=== PATIENT | female | born 1980 | race Caucasian/White ===

== ENCOUNTER → 2022-09-13 | Emergency (ER) | payer OTHER ==
[~2022-09-13] VITALS: Ht 152.4 cm; Wt 81.6 kg
== END | disposition left against medical advice (07) ==
LOC: ER 19:11
DX: Z53.21 Procedure and treatment not carried out due to patient leaving prior to being seen by health care provider (principal)

== ENCOUNTER → 2022-10-11 | Emergency (ER) | payer OTHER ==
[~2022-10-11] VITALS: Ht 152.4 cm; Wt 81.6 kg
== END | disposition left against medical advice (07) ==
LOC: ER 04:09
DX: Z53.21 Procedure and treatment not carried out due to patient leaving prior to being seen by health care provider (principal)

== ENCOUNTER 2022-12-30 03:49 | Emergency (ER) | payer OTHER ==
[~2022-12-30] VITALS: Ht 152.4 cm; Wt 89.4 kg
[2022-12-30] MEDS ORDERED: NORFLEX100MG PO (05:27)
[2022-12-30] MEDS ORDERED: KETO10TA2 PO (05:27)
== END 2022-12-30 05:38 ==
LOC: ER 03:49
DX: M62.838 Other muscle spasm (principal)

== ENCOUNTER → 2023-03-11 | Emergency (ER) | payer OTHER ==
[~2023-03-11] MED LIST: KETO10TA2 PO; NORFLEX100MG PO
== END | disposition left against medical advice (07) ==
LOC: ER 18:21
DX: Z53.21 Procedure and treatment not carried out due to patient leaving prior to being seen by health care provider (principal)